=== PATIENT | female | born 1950 | race Asian ===

== ENCOUNTER 2016-11-21 12:51 | Observation (INO) | payer OTHER ==
--- NOTE | 2016-11-21 13:18 | PDOC ---
[id number]: No Limitations - History of Present Illness Initial Comments: 11/21/16 14:11 The patient is a 66 year old female with pmh of HTN (non-compliant with medications) who presents to the ED with shortness of breath for 2 months and elevated blood pressure and chest pain since this morning. The patient reports that her difficulty breathing is exacerbated when lying down and sitting forward. She states that her chest pain is minor and located mid sternally. The patient reports associated pounding headache and lightheadedness. The patient denies any recent changes in blood pressure medication but notes she recently started taking Levaquin. <Tulio Baker - Last Filed: 11/21/16 15:03> <Rena Polk - Last Filed: 11/25/16 22:23> - General Chief Complaint: Shortness of Breath Stated Complaint: SOB, HIGH BLOOD PRESSURE Time Seen by Provider: 11/21/16 13:18 Past History <Tulio Baker - Last Filed: 11/21/16 15:03> - Past Medical History Diabetes: Yes HTN: Yes Hypercholesterolemia: Yes - Psycho/Social/Smoking Cessation Hx Suicidal Ideation: No Smoking History: Never smoked <Rena Polk - Last Filed: 11/25/16 22:23> - Past Medical History Allergies/Adverse Reactions: Allergies Allergy/AdvReac Type Severity Reaction Status Date / Time No Known Allergies Allergy Verified 11/21/16 13:11 Home Medications: Ambulatory Orders Albuterol Sulfate Inhaler - [Ventolin HFA Inhaler -] 2 inh PO Q4H PRN 11/21/16 Atorvastatin Ca [Lipitor] 10 mg PO HS 11/21/16 Gabapentin 300 mg PO BID 11/21/16 Losartan Potassium 50 mg PO HS 11/21/16 Metformin HCl [Glucophage] 1,000 mg PO BID 11/21/16 Albuterol 2.5/Ipratropium 0.5 [Duoneb -] 1 amp NEB Q6H PRN #6 amp 11/24/16 Aspirin Coated [Ecotrin -] 81 mg PO DAILY #30 tab 11/24/16 Metoprolol Tartrate [Lopressor -] 25 mg PO BID #60 tablet 11/24/16 Pantoprazole Sodium [Protonix -] 40 mg PO BID #60 tab 04/03/17 Salmeterol/Fluticasone [Advair 250Mcg/50Mcg -] 1 inh IH BID #6 inh 11/24/16 Review of Systems - Review of Systems Able to Perform ROS?: Yes Comments:: 11/21/16 14:11 GENERAL/CONSTITUTIONAL: No fever or chills. No weakness. HEAD, EYES, EARS, NOSE AND THROAT: No change in vision. No ear pain or discharge. No sore throat. CARDIOVASCULAR: Yes chest pain, elevated blood pressure, and shortness of breath. RESPIRATORY: No cough, wheezing, or hemoptysis. GASTROINTESTINAL: No nausea, vomiting, diarrhea or constipation. GENITOURINARY: No dysuria, frequency, or change in urination. MUSCULOSKELETAL: No joint or muscle swelling or pain. No neck or back pain. SKIN: No rash NEUROLOGIC: Yes headache, lightheadedness. No vertigo, loss of consciousness, or change in strength/sensation. ENDOCRINE: No increased thirst. No abnormal weight change. HEMATOLOGIC/LYMPHATIC: No anemia, easy bleeding, or history of blood clots. ALLERGIC/IMMUNOLOGIC: No hives or skin allergy. <Tulio Baker - Last Filed: 11/21/16 15:03> *Physical Exam - Vital Signs Last Vital Signs Temp Pulse Resp BP Pulse Ox 98.1 F 89 17 136/79 98 11/21/16 13:11 11/21/16 13:11 11/21/16 13:11 11/21/16 13:11 11/21/16 13:11 - Physical Exam Comments: 11/21/16 14:11 GENERAL: Awake, alert, and fully oriented, in no acute distress HEAD: No signs of trauma EYES: PERRLA, EOMI, sclera anicteric, conjunctiva clear ENT: Auricles normal inspection, hearing grossly normal, nares patent, oropharynx clear without exudates. Moist mucosa NECK: Normal ROM, supple, no lymphadenopathy, JVD, or masses LUNGS: (+) Bilateral basal crackles. HEART: Regular rate and rhythm, normal S1 and S2, no murmurs, rubs or gallops ABDOMEN: Soft, nontender, normoactive bowel sounds. No guarding, no rebound. No masses EXTREMITIES: Normal range of motion, no edema. No clubbing or cyanosis. No cords, erythema, or tenderness NEUROLOGICAL: Cranial nerves II through XII grossly intact. Normal speech, normal gait SKIN: Warm, Dry, normal turgor, no rashes or lesions noted. <Tulio Baker - Last Filed: 11/21/16 15:03> - Vital Signs Last Vital Signs Temp Pulse Resp BP Pulse Ox 98.1 F 89 17 136/79 98 11/21/16 13:11 11/21/16 13:11 11/21/16 13:11 11/21/16 13:11 11/21/16 13:11 <Rena Polk - Last Filed: 11/25/16 22:23> ED Treatment Course - LABORATORY CBC & Chemistry Diagram: 11/21/16 13:29 11/21/16 13:29 - ADDITIONAL ORDERS Additional order review: 11/21/16 13:29 RBC 4.25 MCV 88.0 MCHC 33.1 RDW 13.6 MPV 8.6 Neutrophils % 59.1 Lymphocytes % 30.5 Monocytes % 7.8 Eosinophils % 1.5 Basophils % 1.1 - RADIOLOGY Radiograph Interpretation: 11/21/16 15:03 EXAM#: TYPE/EXAM: RESULT: [id number] RAD/CHEST PA LAT Clinical history: Shortness of breath. Rule out pneumonia. Comparison: March 05, 2016. PA and lateral views of the chest are supplied and demonstrate uncoiling of the aorta and degenerative changes of the dorsal spine. No acute intrathoracic abnormality is visualized. No heart failure, effusion or consolidation is seen. The lungs are hyperexpanded. Mild linear scarring in the apices and at the bases. Mild right apical pleural cap as previously IMPRESSION: Hyperexpanded lungs No acute intrathoracic abnormality seen. Clinical correlation advised. Reported By: Mervin Mays MD 11/21/16 1445 <Tulio Baker - Last Filed: 11/21/16 15:03> - LABORATORY CBC & Chemistry Diagram: 11/22/16 06:20 11/23/16 11:10 <Rena Polk - Last Filed: 11/25/16 22:23> Medical Decision Making - Medical Decision Making 11/21/16 16:[address] Arora at shift change. Presents with cp, SOB. Found to be tachycardic and uncomfortable on initial evaluation. Initial labs and CE negative, awaiting D-0dimer. If positive, will obtain CTA chest to r/o PE. If negative, will admit to telemetry for further workup for possible ACS. <Rena Polk - Last Filed: 11/25/16 22:23> *DC/Admit/Observation/Transfer - Attestations Scribe Attestion: 11/21/16 14:11 Documentation prepared by Tulio Baker, acting as medical biller for Rena Polk MD. <Tulio Baker - Last Filed: 11/21/16 15:03> <Rena Polk - Last Filed: 11/25/16 22:23> Diagnosis at time of Disposition: Chest pain - Discharge Dispostion Disposition: HOME Condition at time of disposition: Good - Prescriptions - Referrals
[2016-11-21 13:19] VITALS: BMI 23.3
[2016-11-21 13:53] LABS: BASOPHIL 1.1 % (0-2.0); EOSINOPHIL 1.5 % (0-4.5); MCH 29.1 pg (25.7-33.7); MCHC 33.1 g/dl (32.0-36.0); MEAN PLT VOLUME 8.6 fl (7.5-11.1); NEUTROPHILS 59.1 % (42.8-82.8); PLATELET COUNT 212 K/MM3 (134-434); RDW 13.6 % (11.6-15.6); WHITE BLOOD COUNT 10.3 K/mm3 (4.0-10.0)
[2016-11-21 14:22] LABS: ALBUMIN 3.5 g/dl (3.4-5.0); ANION GAP 12 (8-16); CO2 24 mmol/L (21-32); CREATININE 0.7 mg/dL (0.55-1.02); GLUCOSE,RANDOM 107 mg/dL (74-106); SGOT/AST 21 U/L (15-37); SGPT/ALT 33 U/L (12-78)
[2016-11-21 14:25] LABS: ALK PHOS 55 U/L (45-117); BILIRUBIN,TOTAL 0.3 mg/dL (0.2-1.0); TOT PROT 7.7 g/dl (6.4-8.2); TROPONIN I < 0.02 ng/ml (0.00-0.05)
[2016-11-21] MEDS ORDERED: ASPIRIN 81 MG CHEWABLE TABLETS PO ONE (18:28)
[2016-11-21] MEDS ORDERED: ASPIRIN 325 MG TABLET ONE (18:30)
--- NOTE | 2016-11-21 19:57 | PDOC ---
*Physical Exam - Vital Signs Last Vital Signs Temp Pulse Resp BP Pulse Ox 98 F 83 17 126/78 98 11/21/16 16:01 11/21/16 16:01 11/21/16 16:01 11/21/16 16:01 11/21/16 16:01 ED Treatment Course - LABORATORY CBC & Chemistry Diagram: 11/21/16 13:29 11/21/16 13:29 - ADDITIONAL ORDERS Additional order review: Laboratory Results 11/21/16 11/21/16 11/21/16 16:48 15:21 13:29 D-Dimer < 200 Cancelled Sodium 135 L Potassium 4.4 Chloride 99 Carbon Dioxide 24 Anion Gap 12 BUN 20 H Creatinine 0.7 Creat Clearance w eGFR > 60 Random Glucose 107 H Calcium 9.0 Total Bilirubin 0.3 AST 21 ALT 33 Alkaline Phosphatase 55 Creatine Kinase 114 Troponin I < 0.02 B-Natriuretic Peptide 138.87 H Total Protein 7.7 Albumin 3.5 11/21/16 13:29 RBC 4.25 MCV 88.0 MCHC 33.1 RDW 13.6 MPV 8.6 Neutrophils % 59.1 Lymphocytes % 30.5 Monocytes % 7.8 Eosinophils % 1.5 Basophils % 1.1 - Medications Given in the ED: ED Medications Discontinued Medications Generic Name Dose Route Start Last Admin Trade Name Freq PRN Reason Stop Dose Admin Aspirin 324 mg 11/21/16 18:28 11/21/16 18:36 Asa - PO 11/21/16 18:29 324 mg ONCE ONE Administration Medical Decision Making - Medical Decision Making 11/21/16 19:56 Sign-out received from outgoing Emergency Physician Dr. Polk Pt interviewed and examined Ancillary studies reviewed Case discussed in detail with oncoming Emergency Physician including history, physical exam and ancillary studies. CBC, BMP 11/21/16 13:29 11/21/16 13:29 CMP Sodium 135 mmol/L (136-145) L 11/21/16 13:29 Potassium 4.4 mmol/L (3.5-5.1) 11/21/16 13:29 Chloride 99 mmol/L (98-107) 11/21/16 13:29 Carbon Dioxide 24 mmol/L (21-32) 11/21/16 13:29 Anion Gap 12 (8-16) 11/21/16 13:29 BUN 20 mg/dL (7-18) H 11/21/16 13:29 Creatinine 0.7 mg/dL (0.55-1.02) 11/21/16 13:29 Creat Clearance w eGFR > 60 (>60) 11/21/16 13:29 Random Glucose 107 mg/dL (74-106) H 11/21/16 13:29 Calcium 9.0 mg/dL (8.5-10.1) 11/21/16 13:29 Total Bilirubin 0.3 mg/dL (0.2-1.0) 11/21/16 13:29 AST 21 U/L (15-37) 11/21/16 13:29 ALT 33 U/L (12-78) 11/21/16 13:29 Alkaline Phosphatase 55 U/L (45-117) 11/21/16 13:29 Creatine Kinase 114 IU/L (26-192) 11/21/16 13:29 Troponin I < 0.02 ng/ml (0.00-0.05) 11/21/16 13:29 B-Natriuretic Peptide 138.87 pg/ml (5-125) H 11/21/16 13:29 Total Protein 7.7 g/dl (6.4-8.2) 11/21/16 13:29 Albumin 3.5 g/dl (3.4-5.0) 11/21/16 13:29 Chest xray reveals hyperexpanded lungs. Case discussed with Dr. Bryant. Accepts under tele observation. Case discussed in detail with admitting physician including history, physical exam and ancillary studies. Admitting physician has assumed care for the patient, will follow all pending diagnostics and will complete the evaluation and treatment. *DC/Admit/Observation/Transfer Diagnosis at time of Disposition: Chest pain Qualifiers: Chest pain type: unspecified Qualified Code(s): R07.9 - Chest pain, unspecified - Discharge Dispostion Condition at time of disposition: Stable Admit: Yes - Referrals Referrals: Ish Mcrae MD [Primary Care Provider] - - Patient Instructions - Post Discharge Activity
--- NOTE | 2016-11-21 20:44 | HP ---
CHIEF COMPLAINT: " Chest pain, palpitation and high blood pressure" PCP: Dr. Mcrae HISTORY OF PRESENT ILLNESS: Patient is a 66-year-old female presented with the chief complaints of " Chest pain, palpitation and high blood pressure". As per the patient, she was feeling well until a month ago but started feeling weak and dizzy on/off. Associated with SOB, dry cough, and palpitations. She visited her primary doctor and was told that she has bronchitis and was given Levofloxacin x10 days which she has been taking it since 9 days. Tomorrow is her last dose of Levofloxacin. She woke up feeling very dizzy with headache, this morning. Checked her blood pressure at home and it was 181/150mmHg. Repeat after 2 hours was 161/123 mmHg. Has a h/o of hypertension and is compliant with medication. Normally takes Losartan 50mg but when her BP increases she sometimes takes 100mg twice a day. Describes the headache to be pressure type. Denies blurring of vision, loc, vertigo, tingling or numbness sensation. Patient also mentions that she has been having palpitation since a month. Usually her pulse ranges from 80-95bpm. Admits that she gets worried about her brothers ady who is in [place] and is in ICU. Patient plans to visit [place] in few weeks. Also states that she has noticed unintentional weight loss within the past year. Patient also states that she had chest pain this morning, lasting for several hours, non radiating, pricking in nature, 6/10 in intensity but resolved completely. Has shortness of breath on/off even at rest. Relieved by sitting up and aggravated on lying flat completely. Associated with Orthopnea +, PND +. Has never done an echo or any cardiac work up in the past. Bowel/Bladder habit normal. Appetite-normal Sleep disturbed. (1) Afebrile, hemodynamically stable, BP-126/78 (2)EKG: NSR @93bpm with questionable age indeterminate anterior wall infarct. Troponin <0.02 x1 (3) CXR: clear with hyperinflated lung serna, no acute pathology (4) ASA 324mg x1, Protonix 40mg IV x1 Recent Travel: None PAST MEDICAL HISTORY: Hypertension, Hyperlipidemia, Diabetes Mellitus, GERD, Asthma, Uterine prolapse (has a pessary) PAST SURGICAL HISTORY: None Social History: Smoking: Denies Alcohol: Denies Drugs: Denies Family History: Unknown Allergies No Known Allergies Allergy (Verified 11/21/16 13:11) HOME MEDICATIONS: Home Medications Medication Instructions Recorded Albuterol Sulfate Inhaler - 2 inh PO Q4H PRN 11/21/16 [Ventolin Hfa Inhaler -] Atorvastatin Ca [Lipitor] 10 mg PO HS 11/21/16 Budesonide/Formeterol Fumarate 1 inh PO BID 11/21/16 [SYMBICORT 160/4.5mcg -] Gabapentin 300 mg PO BID 11/21/16 Levofloxacin [Levaquin -] 500 mg PO DAILY 11/21/16 Losartan Potassium 50 mg PO HS 11/21/16 Metformin HCl [Glucophage] 1,000 mg PO BID 11/21/16 REVIEW OF SYSTEMS CONSTITUTIONAL: Present: generalized weakness Absent: fever, chills, diaphoresis, malaise, loss of appetite, weight change HEENT: Absent: rhinorrhea, nasal congestion, throat pain, throat swelling, difficulty swallowing, mouth swelling, ear pain, eye pain, visual changes CARDIOVASCULAR: Present: chest pain, palpitations Absent: irregular heart rate, lightheadedness, peripheral edema RESPIRATORY: Present: shortness of breath, dyspnea with exertion, orthopnea Absent: cough, wheezing, stridor, hemoptysis GASTROINTESTINAL: Absent: abdominal pain, abdominal distension, nausea, vomiting, diarrhea, constipation, melena, hematochezia GENITOURINARY: Absent: dysuria, frequency, urgency, hesitancy, hematuria, flank pain, genital pain MUSCULOSKELETAL: Absent: myalgia, arthralgia, joint swelling, back pain, neck pain SKIN: Absent: rash, itching, pallor HEMATOLOGIC/IMMUNOLOGIC: Absent: easy bleeding, easy bruising, lymphadenopathy, frequent infections ENDOCRINE: Present: unexplained weight loss Absent: unexplained weight gain, heat intolerance, cold intolerance NEUROLOGIC: Absent: headache, focal weakness or paresthesias, dizziness, unsteady gait, seizure, mental status changes, bladder or bowel incontinence PSYCHIATRIC: Absent: anxiety, depression, suicidal or homicidal ideation, hallucinations. PHYSICAL EXAMINATION GENERAL: Moderately built female, Awake, alert, and fully oriented, in no acute distress. HEAD: Normal with no signs of trauma. EYES: EOM intact, no pallor or icterus. EARS, NOSE, THROAT: Ears normal. Moist mucous membranes. NECK:Supple LUNGS: Breath sounds equal, clear to auscultation bilaterally. No wheezes, and no crackles. No accessory muscle use. HEART: Tachycardic, Regular rate and rhythm, normal S1 and S2 without murmur. ABDOMEN: Soft, nontender, not distended, normoactive bowel sounds, no guarding, no rebound, no masses. No hepatomegaly or splenomegaly. MUSCULOSKELETAL: Normal range of motion at all joints. No bony deformities or tenderness. No CVA tenderness. UPPER EXTREMITIES: 2+ pulses, warm, well-perfused. No cyanosis. No clubbing. No peripheral edema. LOWER EXTREMITIES: 2+ pulses, warm, well-perfused. No calf tenderness. No peripheral edema. NEUROLOGICAL: Cranial nerves II-XII intact. Normal speech. Normal gait. PSYCHIATRIC: Cooperative. Good eye contact. Anxious. Appropriate mood and affect. SKIN: Warm, dry, normal turgor, no rashes or lesions noted, normal capillary refill. ASSESSMENT/PLAN: Patient is a 66-year-old female with signficant past medical history of Hypertension, Hyperlipidemia, Diabetes Mellitus, GERD, Asthma, Uterine prolapse (has a pessary) presented with the chief complaints of " Chest pain, palpitation and high blood pressure". # Atypical chest pain Patient presented with left sided chest pain x 1 days, non radiating, associated with palpitations (since a month) On arrival, vitals wnl EKG: NSR @93bpm with questionable age indeterminate anterior wall infarct. Placed on observation Monitor vitals, continuous cardiac monitoring Troponin x 2 negative Would consider Echo and stress test as outpatient # Palpitations Likely due to anxiety. Patient looks anxious and seems like she worries about everything. Xanax 0.25mg stat # Uncontrolled hypertension BP reading at home was 181/150mmHg. Repeat after 2 hours was 161/123 mmHg. But was normal when she came to the ED Continue Losartan 50mg PO HS Medication compliance counseling Sodium controlled diet # Diabetes Mellitus HbA1c pending Insulin sliding scale Finger stick glucose monitoring Diabetic diet # Asthma On Symbicort and albuterol. Albuterol on hold due to palpitations. # GERD On Protonix Would consider continuing protonix upon discharge # Uterine prolapse (has a pessary) No acute problems. # FEN IV NS @ NS 83mls/hr Electrolytes to be repeated tomorrow Diabetic diet # Prophylaxis For DVT- On Scds, patient ambulating For GI- On protonix # Code Status: Full Code # Dispo: Placed on observation in Telemetry. Illness, Investigation and Plan of care of explained to the patient. She verbalized understanding. Case seen and discussed with Dr. Bryant. Visit type - Emergency Visit Emergency Visit: Yes ED Registration Date: 11/21/16 Care time: The patient presented to the Emergency Department on the above date and was hospitalized for further evaluation of their emergent condition. - New Patient This patient is new to me today: Yes Date on this admission: 11/21/16 - Critical Care Critical Care patient: No
[2016-11-21] MEDS ORDERED: ACETAMINOPHEN 325 MG TABLET (FP) PO PRN (20:47)
[2016-11-21] MEDS ORDERED: PANTOPRAZOLE SODIUM 40 MG in SODIUM CHLORIDE 100 ML IVPB SCH (21:00)
[2016-11-21] MEDS ORDERED: PANTOPRAZOLE SODIUM 100 ML IVPB ONE (21:04)
[2016-11-21] MEDS: SODIUM CHLORIDE 1,000 ML IV SCH (21:18)
--- NOTE | 2016-11-21 21:22 | MSN ---
Admitting History and Physical - Admission Chief Complaint: Chest pain, SOB, and high blood pressure reading History of Present Illness: Pt is a 66 yo F with a PMHx of DM2, HTN, HLD, GERD, and asthma, who presents to the ED complaining of acute onset chest pain and difficulty breathing. She has been feeling unwell for over a month now with symptoms of CP, SOB, dry cough, and palpitations. This morning before breakfast she felt dizzy, developed a global, pressure type headache, and had an elevated BP reading of "around 181/ 150". A repeat of "161/123" was done. She also admitted to L sided, dull, achy CP that lasted a few hours. The pt states her cough is worse when lying down and often at night she experiences a burning sensation in her chest. Of note, she went to her PMD last week and was Dx with bronchitis. She was prescribed Levaquin and Symbicort. The pt appears very anxious and worried about these ongoing symptoms. When she does experience palpitations she notes her HR to be in the 90s and sometimes in the low 100s. Pt admits to recent weight loss over the past year. Pt denies recent fevers, chills, abdominal pain, nausea, vomiting, diarrhea, constipation, dysuria, frequency, change in vision, floaters , or blurriness. ER course was notable for: (1) EKG: NSR @93bpm with questionable age indeterminate anterior wall infarct. Troponin <0.02 x1 (2) CXR: clear with hyperinflated lung serna, no acute pathology (3) ASA 324mg x1, Protonix 40mg IV x1 History Source: Patient Limitations to Obtaining History: No Limitations - Past Medical History Cardiovascular: Yes: HTN, Hyperlipdemia. No: [place] Pulmonary: Yes: Asthma, Bronchitis Gastrointestinal: Yes: GERD Reproductive: Yes: Other (Uterine prolapse) Endocrine: Yes: Diabetes Mellitus - Past Surgical History Additional Past Surgical History: Hemorrhoidectomy - Smoking History Smoking history: Never smoked Have you smoked in the past 12 months: No - Alcohol/Substance Use Hx Alcohol Use: No History of Substance Use: reports: None - Social History Usual Living Arrangement: Yes: With Spouse ADL: Independent History of Recent Travel: No Home Medications - Allergies Allergies/Adverse Reactions: Allergies Allergy/AdvReac Type Severity Reaction Status Date / Time No Known Allergies Allergy Verified 11/21/16 13:11 - Home Medications Home Medications: Ambulatory Orders Albuterol Sulfate Inhaler - [Ventolin Hfa Inhaler -] 2 inh PO Q4H PRN 11/21/16 Atorvastatin Ca [Lipitor] 10 mg PO HS 11/21/16 Budesonide/Formeterol Fumarate [SYMBICORT 160/4.5mcg -] 1 inh PO BID 11/21/16 Gabapentin 300 mg PO BID 11/21/16 Levofloxacin [Levaquin -] 500 mg PO DAILY 11/21/16 Losartan Potassium 50 mg PO HS 11/21/16 Metformin HCl [Glucophage] 1,000 mg PO BID 11/21/16 Family Disease History - Family Disease History Family Disease History: Other: Mother (Hyperthyroidism), Brother (HTN) Other Family History: Negative for [place] Review of Systems - Review of Systems Constitutional: reports: Unintentional Wgt. Loss. denies: Chills, Fever Eyes: denies: No Symptoms HENT: denies: No Symptoms Neck: denies: No Symptoms Cardiovascular: reports: Chest Pain, Palpitations, Shortness of Breath Respiratory: reports: Cough, PND, SOB Gastrointestinal: reports: Indigestion (Worse at night when lying flat). denies : Abdominal Pain, Constipation, Diarrhea, Nausea, Vomiting Genitourinary: denies: Burning, Discharge, Dysuria, Frequency, Hematuria, Urgency Breasts: denies: No Symptoms Reported Musculoskeletal: reports: Joint Swelling Integumentary: denies: No Symptoms Neurological: reports: Dizziness, Headache Endocrine: reports: Unexplained Weight Loss Hematology/Lymphatic: denies: No Symptoms Psychiatric: reports: Anxiety Physical Examination Vital Signs: Vital Signs Temperature 98 F 11/21/16 16:01 Pulse Rate 83 11/21/16 16:01 Respiratory Rate 17 11/21/16 16:01 Blood Pressure 126/78 11/21/16 16:01 O2 Sat by Pulse Oximetry (%) 98 11/21/16 16:01 Constitutional: Yes: Well Nourished, Anxious, Mild Distress, Thin Eyes: Yes: WNL, Conjunctiva Clear, EOM Intact, PERRL. No: Sclera Icterus HENT: Yes: WNL, Atraumatic, Normocephalic Neck: Yes: WNL, Supple, Trachea Midline Cardiovascular: Yes: WNL, Regular Rate and Rhythm, S1, S2. No: Pulse Irregular , JVD, Murmur, Rub Respiratory: Yes: WNL, Regular, CTA Bilaterally. No: Cough, Rales, Rhonchi, SOB , Tachypnea, Wheezes Gastrointestinal: Yes: WNL, Normal Bowel Sounds, Soft. No: Distention, Tenderness, Tenderness, Epigastrium, Tenderness, Rebound, Vomiting Extremities: Yes: WNL Edema: No Peripheral Pulses WNL: Yes Integumentary: Yes: WNL Neurological: Yes: WNL, Alert, Oriented, Cran Nerves II-XII Intact. No: Loss of Sensation, Numbness, Paresthesia, Tingling, Tremors ...Motor Strength: WNL Psychiatric: Yes: WNL, Alert, Oriented, Other (Anxious) Labs: CBC WBC 10.3 K/mm3 (4.0-10.0) H 11/21/16 13:29 RBC 4.25 M/mm3 (3.60-5.2) 11/21/16 13:29 Hgb 12.4 GM/dL (10.7-15.3) 11/21/16 13:29 Hct 37.4 % (32.4-45.2) 11/21/16 13:29 MCV 88.0 fl (80-96) 11/21/16 13:29 MCHC 33.1 g/dl (32.0-36.0) 11/21/16 13:29 RDW 13.6 % (11.6-15.6) 11/21/16 13:29 Plt Count 212 K/MM3 (134-434) 11/21/16 13:29 MPV 8.6 fl (7.5-11.1) 11/21/16 13:29 Neutrophils % 59.1 % (42.8-82.8) 11/21/16 13:29 Lymphocytes % 30.5 % (8-40) 11/21/16 13:29 Monocytes % 7.8 % (3.8-10.2) 11/21/16 13:29 Eosinophils % 1.5 % (0-4.5) 11/21/16 13:29 Basophils % 1.1 % (0-2.0) 11/21/16 13:29 CMP Sodium 135 mmol/L (136-145) L 11/21/16 13:29 Potassium 4.4 mmol/L (3.5-5.1) 11/21/16 13:29 Chloride 99 mmol/L (98-107) 11/21/16 13:29 Carbon Dioxide 24 mmol/L (21-32) 11/21/16 13:29 Anion Gap 12 (8-16) 11/21/16 13:29 BUN 20 mg/dL (7-18) H 11/21/16 13:29 Creatinine 0.7 mg/dL (0.55-1.02) 11/21/16 13:29 Creat Clearance w eGFR > 60 (>60) 11/21/16 13:29 Random Glucose 107 mg/dL (74-106) H 11/21/16 13:29 Calcium 9.0 mg/dL (8.5-10.1) 11/21/16 13:29 Total Bilirubin 0.3 mg/dL (0.2-1.0) 11/21/16 13:29 AST 21 U/L (15-37) 11/21/16 13:29 ALT 33 U/L (12-78) 11/21/16 13:29 Alkaline Phosphatase 55 U/L (45-117) 11/21/16 13:29 Creatine Kinase 114 IU/L (26-192) 11/21/16 13:29 Troponin I < 0.02 ng/ml (0.00-0.05) 11/21/16 13:29 B-Natriuretic Peptide 138.87 pg/ml (5-125) H 11/21/16 13:29 Total Protein 7.7 g/dl (6.4-8.2) 11/21/16 13:29 Albumin 3.5 g/dl (3.4-5.0) 11/21/16 13:29 D-Dimer: <200 Imaging - Results Chest X-ray: Report Reviewed, Image Reviewed (Clear with hyperinflated lung serna, no acute pathology) EKG: Report Reviewed, Image Reviewed (NSR @93bpm with questionable age indeterminate anterior wall infarct) Problem List - Problems (1) Chest pain Assessment/Plan Pt is a 66 yo F with a PMHx of DM2, HTN, HLD, GERD, and asthma, who presents to the ED c/o CP, SOB, dizziness, and headache in the setting of elevated BP readings at home. Pt states she has not been feeling well for over a month and has been experiencing recurring symptoms of CP, SOB, cough, and palpitations. 1. Atypical chest pain r/o ACS -Resolved -EKG negative -Trops negative x1 -ASA 324mg x1 given in ED -Likely 2/2 unmanaged GERD. Pt is not on PPI at home -Start Protonix 40mg IV daily -Repeat CBC, CMP, and coags in AM 2. SOB -Pt does not appear in respiratory distress. Lungs CTAB -Hold inhalers as they can be contributing to palpitations (albuterol) and GERD (steroids) 3. Palpitations -TSH pending -Tele monitoring -Pt could benefit from beta philip. Hold now since BP readings are nml -Start NS @83cc/hr. Pt BUN/Cr >20 and admits to limited fluid intake -ECHO pending -Xanax prn for anxiety 4. HTN -Stable. Nml readings x2 since admission -Monitor vitals Q4H -Hold Cozaar since BP readings are nml -Pt may benefit from BB instead of ACEI in setting of elevated HR 5. Headache -Tylenol 650mg Q6H prn 6. DM2 -BGM -SSI -HbA1c pending 7. HLD -Lipitor 10mg PO HS -Lipid panel pending 8. FEN -IVF with NS @83cc/hr -BMP WNL. Mg, Phos pending -Na/Carb controlled diet 9. DVT ppx - 10. Dispo -Pt to be admitted to telemetry Dewayne Mcnamara, MS3
[2016-11-21] MEDS ORDERED: PANTOPRAZOLE SODIUM 100 ML IVPB SCH (21:29)
--- NOTE | 2016-11-21 21:56 | PN ---
<Tete Briones - Last Filed: 11/21/16 22:21> Teaching Attending Note ATTENDING PHYSICIAN STATEMENT I saw and evaluated the patient. I reviewed the resident's note and discussed the case with the resident. I agree with the resident's findings and plan as documented. SUBJECTIVE: Chief complaint: chest discomfort and palpitations x 1 1/2 month 66 year old female that presents to Emergency Department complaining 1 1/2 month history of palpitations, generalized weakness, fatigue, occasional cough, occasional shortness of breath and now mid-sternal chest pressure. She was seen and evaluated by her PMD recently and diagnosed with bronchitis and was prescribed symbicort and PO antibiotics. She presents today due to lack of improvement of her symptoms. Patient appears very anxious. PMH: hypertension, asthma, GERD, hyperlipidemia PSH: none FMH: non contributory SH: denies smoking, drinking, drug use OBJECTIVE: Physical: VS: Last Vital Signs Temp Pulse Resp BP Pulse Ox 98 F 83 17 126/78 98 11/21/16 16:01 11/21/16 16:01 11/21/16 16:01 11/21/16 16:01 11/21/16 16:01 GENERAL: Awake, alert, and fully oriented, in no acute distress HEENT: Atraumatic. PERRLA, EOMI. Moist mucosa. No JVD LUNGS: No distress, speaks full sentences, clear to auscultation bilaterally HEART: Regular rate and rhythm, normal S1 and S2, no murmurs, rubs or gallops, peripheral pulses normal and equal bilaterally. ABDOMEN: Soft, nontender, normoactive bowel sounds. No guarding, no rebound. No masses EXTREMITIES: Normal inspection, Normal range of motion, no edema. No clubbing or cyanosis. NEUROLOGICAL: Cranial nerves II through XII grossly intact. Normal speech, normal gait, no focal sensorimotor deficits SKIN: Warm, Dry, normal turgor, no rashes or lesions noted. Labs: CBCD WBC 10.3 K/mm3 (4.0-10.0) H 11/21/16 13:29 RBC 4.25 M/mm3 (3.60-5.2) 11/21/16 13:29 Hgb 12.4 GM/dL (10.7-15.3) 11/21/16 13:29 Hct 37.4 % (32.4-45.2) 11/21/16 13:29 MCV 88.0 fl (80-96) 11/21/16 13:29 MCHC 33.1 g/dl (32.0-36.0) 11/21/16 13:29 RDW 13.6 % (11.6-15.6) 11/21/16 13:29 Plt Count 212 K/MM3 (134-434) 11/21/16 13:29 MPV 8.6 fl (7.5-11.1) 11/21/16 13:29 CMP Sodium 135 mmol/L (136-145) L 11/21/16 13:29 Potassium 4.4 mmol/L (3.5-5.1) 11/21/16 13:29 Chloride 99 mmol/L (98-107) 11/21/16 13:29 Carbon Dioxide 24 mmol/L (21-32) 11/21/16 13:29 Anion Gap 12 (8-16) 11/21/16 13:29 BUN 20 mg/dL (7-18) H 11/21/16 13:29 Creatinine 0.7 mg/dL (0.55-1.02) 11/21/16 13:29 Creat Clearance w eGFR > 60 (>60) 11/21/16 13:29 Calcium 9.0 mg/dL (8.5-10.1) 11/21/16 13:29 Total Bilirubin 0.3 mg/dL (0.2-1.0) 11/21/16 13:29 AST 21 U/L (15-37) 11/21/16 13:29 ALT 33 U/L (12-78) 11/21/16 13:29 Alkaline Phosphatase 55 U/L (45-117) 11/21/16 13:29 Total Protein 7.7 g/dl (6.4-8.2) 11/21/16 13:29 Albumin 3.5 g/dl (3.4-5.0) 11/21/16 13:29 IMAGING: EXAM: RAD/CHEST PA LAT Clinical history: Shortness of breath. Comparison: March 05, 2016. PA and lateral views of the chest are supplied and demonstrate uncoiling of the aorta and degenerative changes of the dorsal spine. No acute intrathoracic abnormality is visualized. No heart failure, effusion or consolidation is seen. The lungs are hyperexpanded. Mild linear scarring in the apices and at the bases. Mild right apical pleural cap as previously IMPRESSION: Hyperexpanded lungs No acute intrathoracic abnormality seen. Clinical correlation advised. Reported By: Mervin Mays MD 11/21/16 8121 ASSESSMENT AND PLAN: 66 year old female presenting with 1 1/2 month of atypical chest pain and subjective palpitations. No acute ECG changes noted at this time. Troponin negative x1. - Telemetry monitoring - ECHO - IVF - Check TSH - Monitor blood pressure and start antihypertensive depending on vital signs - Xanax PRN for anxiety Observation. <Deep Bryant - Last Filed: 11/21/16 22:26> Teaching Attending Note Name of Resident: Kamilah Conklin
[2016-11-21] MEDS ORDERED: HEMOQUE TEST 1 EACH EACH ONE (22:14)
[2016-11-21] MEDS: ATORVASTATIN CA 10 MG TABLET (FP) PO SCH (22:23)
[2016-11-21] MEDS: LOSARTAN POTASSIUM 50 MG TABLET (FP) PO SCH (22:23)
[2016-11-21] MEDS: GABAPENTIN 300 MG CAPSULE (FP) PO SCH (22:23)
[2016-11-21] MEDS: INSULIN SLIDING SCALE (NOVOLOG) 1 VIAL SQ SCH (22:23)
[2016-11-21] MEDS: BUDESONIDE/FORMETEROL FUMARATE 160/4.5 mcg INHALER IH SCH (22:24)
[2016-11-22] MEDS ORDERED: ALPRAZolam 0.25 MG TABLET PO ONE (00:26)
[2016-11-22] MEDS: INSULIN SLIDING SCALE (NOVOLOG) 1 VIAL SQ SCH ×4 (06:00→21:59)
[2016-11-22 07:38] LABS: BASOPHIL 1.2 % (0-2.0); EOSINOPHIL 2.7 % (0-4.5); MCH 29.2 pg (25.7-33.7); MCHC 33.4 g/dl (32.0-36.0); MEAN CELL VOLUME 87.4 fl (80-96); MEAN PLT VOLUME 8.7 fl (7.5-11.1); NEUTROPHILS 54.5 % (42.8-82.8); PLATELET COUNT 178 K/MM3 (134-434); RDW 13.6 % (11.6-15.6); WHITE BLOOD COUNT 8.5 K/mm3 (4.0-10.0)
[2016-11-22 07:48] LABS: INR 0.99 (0.82-1.09); PROTHROMBIN TIME (PATIENT) 10.9 SEC (9.98-11.88)
[2016-11-22 07:51] LABS: ACTIVATED PTT 30.8 SECONDS (26.9-34.4)
[2016-11-22 07:58] LABS: ALBUMIN 2.9 g/dl (3.4-5.0); ANION GAP 10 (8-16); CALCIUM 8.4 mg/dL (8.5-10.1); CO2 25 mmol/L (21-32); CREATININE 0.6 mg/dL (0.55-1.02); GLUCOSE,RANDOM 122 mg/dL (74-106); MAGNESIUM 1.9 mg/dL (1.8-2.4); SGOT/AST 13 U/L (15-37); SGPT/ALT 25 U/L (12-78); TOT PROT 6.1 g/dl (6.4-8.2)
[2016-11-22 08:01] LABS: ALK PHOS 44 U/L (45-117); BILIRUBIN,TOTAL 0.2 mg/dL (0.2-1.0); CHOLESTEROL 112 mg/dL (50-200); LDL CHOLESTEROL (ONLY SJRH) 45 mg/dL (5-100); PHOSPHOROUS 3.8 mg/dL (2.5-4.9)
[2016-11-22] MEDS ORDERED: PT OWN MED DRAWER 7, Y5N ONE ×2 (09:06→21:57)
[2016-11-22] MEDS: GABAPENTIN 300 MG CAPSULE (FP) PO SCH ×2 (09:15→21:59)
[2016-11-22] MEDS: BUDESONIDE/FORMETEROL FUMARATE 160/4.5 mcg INHALER IH SCH ×2 (09:15→22:00)
--- NOTE | 2016-11-22 09:35 | PN ---
Physical Exam: SUBJECTIVE: Patient seen and examined Feeling better, with no acute distress. OBJECTIVE: Vital Signs Temperature 97.9 F 11/22/16 06:00 Pulse Rate 88 11/22/16 06:00 Respiratory Rate 18 11/22/16 06:00 Blood Pressure 105/74 11/22/16 06:00 O2 Sat by Pulse Oximetry (%) 99 11/21/16 23:15 GENERAL: The patient is awake, alert, and fully oriented, in no acute distress. HEAD: Normal with no signs of trauma. EYES: PERRL, extraocular movements intact, sclera anicteric, conjunctiva clear. No ptosis. ENT: Ears normal, nares patent, oropharynx clear without exudates, moist mucous membranes. NECK: Trachea midline, full range of motion, supple. LUNGS: Breath sounds equal, clear to auscultation bilaterally, no wheezes, no crackles, no accessory muscle use. HEART: Regular rate and rhythm, S1, S2 without murmur, rub or gallop. ABDOMEN: Soft, nontender, nondistended, normoactive bowel sounds, no guarding, no rebound, no hepatosplenomegaly, no masses. EXTREMITIES: 2+ pulses, warm, well-perfused, no edema. NEUROLOGICAL: Cranial nerves II through XII grossly intact. Normal speech, gait not observed. PSYCH: Normal mood, normal affect. SKIN: Warm, dry, normal turgor, no rashes or lesions noted CBCD WBC 8.5 K/mm3 (4.0-10.0) 11/22/16 06:20 RBC 3.82 M/mm3 (3.60-5.2) 11/22/16 06:20 Hgb 11.2 GM/dL (10.7-15.3) 11/22/16 06:20 Hct 33.4 % (32.4-45.2) 11/22/16 06:20 MCV 87.4 fl (80-96) 11/22/16 06:20 MCHC 33.4 g/dl (32.0-36.0) 11/22/16 06:20 RDW 13.6 % (11.6-15.6) 11/22/16 06:20 Plt Count 178 K/MM3 (134-434) 11/22/16 06:20 MPV 8.7 fl (7.5-11.1) 11/22/16 06:20 CMP Sodium 139 mmol/L (136-145) 11/22/16 06:20 Potassium 4.0 mmol/L (3.5-5.1) 11/22/16 06:20 Chloride 104 mmol/L (98-107) 11/22/16 06:20 Carbon Dioxide 25 mmol/L (21-32) 11/22/16 06:20 Anion Gap 10 (8-16) 11/22/16 06:20 BUN 18 mg/dL (7-18) 11/22/16 06:20 Creatinine 0.6 mg/dL (0.55-1.02) 11/22/16 06:20 Creat Clearance w eGFR > 60 (>60) 11/22/16 06:20 Random Glucose 122 mg/dL (74-106) H 11/22/16 06:20 Calcium 8.4 mg/dL (8.5-10.1) L 11/22/16 06:20 Total Bilirubin 0.2 mg/dL (0.2-1.0) D 11/22/16 06:20 AST 13 U/L (15-37) L D 11/22/16 06:20 ALT 25 U/L (12-78) D 11/22/16 06:20 Alkaline Phosphatase 44 U/L (45-117) L 11/22/16 06:20 Total Protein 6.1 g/dl (6.4-8.2) L D 11/22/16 06:20 Albumin 2.9 g/dl (3.4-5.0) L 11/22/16 06:20 CARDIAC ENZYMES Creatine Kinase 114 IU/L (26-192) 11/21/16 13:29 Troponin I < 0.02 ng/ml (0.00-0.05) 11/21/16 21:05 INR, PTT INR 0.99 (0.82-1.09) 11/22/16 06:20 Active Medications Generic Name Dose Route Start Last Admin Trade Name Freq PRN Reason Stop Dose Admin Acetaminophen 650 mg 11/21/16 20:47 11/22/16 05:02 Tylenol - PO 650 mg Q6H PRN Administration FEVER OR PAIN Atorvastatin Calcium 10 mg 11/21/16 22:00 11/21/16 22:23 Lipitor - PO 10 mg HS FRANCESCO Administration Budesonide/Formoterol Fumarate 1 puff 11/21/16 22:00 11/22/16 09:15 Symbicort 160/4.5mcg - IH 1 puff BID FRANCESCO Administration Gabapentin 300 mg 11/21/16 22:00 11/22/16 09:15 Neurontin - PO 300 mg BID FRANCESCO Administration Sodium Chloride 1,000 mls @ 83 mls/hr 11/21/16 21:00 11/21/16 21:18 Normal Saline - IV 83 mls/hr ASDIR FRANCESCO Administration Pantoprazole Sodium 100 mls @ 200 mls/hr 11/21/16 21:29 11/22/16 09:15 Protonix 40mg Ivpb (Pre-Docked) IVPB 200 mls/hr DAILY FRANCESCO Administration Insulin Aspart 1 vial 11/21/16 22:00 11/22/16 06:00 Novolog Vial Sliding Scale - SQ Not Given ACHS [facility] Protocol Losartan Potassium 50 mg 11/21/16 22:00 11/21/16 22:23 Cozaar - PO 50 mg HS FRANCESCO Administration Non-Formulary Medication 1,000 mg 11/22/16 10:00 Metformin Hcl [Glucophage] PO BID [facility] Home Medications Medication Instructions Recorded Albuterol Sulfate Inhaler - 2 inh PO Q4H PRN 11/21/16 [Ventolin Hfa Inhaler -] Atorvastatin Ca [Lipitor] 10 mg PO HS 11/21/16 Budesonide/Formeterol Fumarate 1 inh PO BID 11/21/16 [SYMBICORT 160/4.5mcg -] Gabapentin 300 mg PO BID 11/21/16 Levofloxacin [Levaquin -] 500 mg PO DAILY 11/21/16 Losartan Potassium 50 mg PO HS 11/21/16 Metformin HCl [Glucophage] 1,000 mg PO BID 11/21/16 Laboratory Tests 11/21/16 11/21/16 11/22/16 13:29 21:05 06:20 Hemoglobin A1c % 7.3 H Troponin I < 0.02 < 0.02 Chest X-ray: Report Reviewed, Image Reviewed (Clear with hyperinflated lung serna, no acute pathology) EKG: Report Reviewed, Image Reviewed (NSR @93bpm with questionable age indeterminate anterior wall infarct) ASSESSMENT/PLAN: Pt is a 66 yo F with a PMHx of DM2, HTN, HLD, GERD, and asthma, who presents to the ED c/o CP, SOB, dizziness, and headache in the setting of elevated BP readings at home. Pt states she has not been feeling well for over a month and has been experiencing recurring symptoms of CP, SOB, cough, and palpitations. #Acute chest pain r/o ACS ; troponin neg. so far, EKG to be repeated for this morning, possible GERD but with hx of T2DM ,patient can have silent [place]. -Trops negative x2 ; on ASA 324mg x1 given in ED # Palpitations most likely due to his inhalers and nebulizers since TSH is normal, need to monitor further in tele for possible any arrythmia On IVF ,NS @83cc/hr. ECHO pending # Hx of Asthma, has not used her singulair for over a month since did not renew them. # HTN Stable. vitals Q4H # Headache Tylenol 650mg Q6H prn #T2DM , SS with coverage ,HbA1c 7. # HLD on Lipitor 10mg PO HS continue DVT ppx - Visit type - Emergency Visit Emergency Visit: Yes ED Registration Date: 11/21/16 Care time: The patient presented to the Emergency Department on the above date and was hospitalized for further evaluation of their emergent condition. - New Patient This patient is new to me today: Yes Date on this admission: 11/22/16 - Critical Care Critical Care patient: No
[2016-11-22] MEDS ORDERED: ALBUTEROL SULFATE IH SCH (10:00)
--- NOTE | 2016-11-22 10:13 | PN ---
Progress Note (short form) - Note Progress Note: Consult Dictated MONTILLA w/ negative enzymes, negative D-dimer and nl BNP Atypical CP REC: Echo on Thursday Stress MPI
[2016-11-22] MEDS ORDERED: METOPROLOL TARTRATE 25 MG TABLET (FP) PO SCH (10:30)
[2016-11-22] MEDS: ASPIRIN COATED 81 MG TABLET.EC PO SCH (10:36)
[2016-11-22] MEDS: metFORMIN HCL 500 MG TABLET (FP) PO SCH ×2 (10:37→18:05)
[2016-11-22 11:19] LABS: TROPONIN I < 0.02 ng/ml (0.00-0.05)
[2016-11-22] MEDS ORDERED: ALBUTEROL SO4 2.5/IPRATROPIUM 0.5 INH SOL 3 ML VIAL.NEB. NEB PRN (12:24)
--- NOTE | 2016-11-22 12:26 | EKG ---
Test Reason : Blood Pressure : / mmHG Vent. Rate : 093 BPM Atrial Rate : 093 BPM P-R Int : 138 ms QRS Dur : 078 ms QT Int : 360 ms P-R-T Axes : 021 028 058 degrees QTc Int : 447 ms NORMAL SINUS RHYTHM LOW VOLTAGE QRS CANNOT RULE OUT ANTERIOR INFARCT , AGE UNDETERMINED ABNORMAL ECG WHEN COMPARED WITH ECG OF 24-AUG-1999 13:10, NO SIGNIFICANT CHANGE WAS FOUND Confirmed by RIP WILLIS, ESTEFANY ([id number]) on 11/22/2016 12:26:05 PM Referred By: Confirmed By:ESTEFANY ERWIN MD
[2016-11-22] MEDS ORDERED: metFORMIN HCL 500 MG TABLET (FP) PO SCH (16:30)
[2016-11-22] MEDS: SODIUM CHLORIDE 1,000 ML IV SCH (21:58)
[2016-11-22] MEDS: MAGNESIUM OXIDE 400 MG TABLET (FP) PO SCH (21:59)
[2016-11-22] MEDS: ATORVASTATIN CA 10 MG TABLET (FP) PO SCH (21:59)
[2016-11-22] MEDS: LOSARTAN POTASSIUM 50 MG TABLET (FP) PO SCH (21:59)
[2016-11-23] MEDS: metFORMIN HCL 500 MG TABLET (FP) PO SCH ×2 (06:42→16:57)
[2016-11-23] MEDS: INSULIN SLIDING SCALE (NOVOLOG) 1 VIAL SQ SCH ×4 (06:43→21:39)
--- NOTE | 2016-11-23 08:29 | PN ---
Progress Note, Physician Chief Complaint: constipated c/o headach c/o leg pains c/o shortness of breath says she felt "great" when protonix was given QHS-- made her sleep with no further chest pain that night Wants her singulair started History of Present Illness: TELE: NSR w/ VPCs and 3 beats NSVT during day yest after metoprolol, ectopy was reduced - Current Medication List Current Medications: Active Medications Acetaminophen (Tylenol -) 650 mg PO Q6H PRN PRN Reason: FEVER OR PAIN Last Admin: 11/22/16 05:02 Dose: 650 mg Albuterol/Ipratropium (Duoneb -) 1 amp NEB Q6H PRN PRN Reason: SHORTNESS OF BREATH Aspirin (Ecotrin -) 81 mg PO DAILY [facility] Last Admin: 11/22/16 10:36 Dose: 81 mg Atorvastatin Calcium (Lipitor -) 10 mg PO HS [facility] Last Admin: 11/22/16 21:59 Dose: 10 mg Budesonide/Formoterol Fumarate (Symbicort 160/4.5mcg -) 1 puff IH BID [facility] Last Admin: 11/22/16 22:00 Dose: 1 puff Gabapentin (Neurontin -) 300 mg PO BID [facility] Last Admin: 11/22/16 21:59 Dose: 300 mg Sodium Chloride (Normal Saline -) 1,000 mls @ 83 mls/hr IV ASDIR [facility] Last Admin: 11/22/16 21:58 Dose: 83 mls/hr Insulin Aspart (Novolog Vial Sliding Scale -) 1 vial SQ ACHS [facility] PRN Reason: Protocol Last Admin: 11/23/16 06:43 Dose: Not Given Losartan Potassium (Cozaar -) 50 mg PO HS [facility] Last Admin: 11/22/16 21:59 Dose: 50 mg Magnesium Oxide (Mag-Ox -) 400 mg PO BID@0800,2000 [facility] Last Admin: 11/22/16 21:59 Dose: 400 mg Metformin HCl (Glucophage -) 1,000 mg PO BIDAC [facility] Last Admin: 11/23/16 06:42 Dose: 1,000 mg Metoprolol Tartrate (Lopressor -) 25 mg PO BID [facility] Montelukast Sodium (Singulair -) 10 mg PO HS [facility] Pantoprazole Sodium (Protonix -) 40 mg PO DAILY FRANCESCO Senna (Senna -) 2 tab PO HS PRN PRN Reason: CONSTIPATION - Objective Vital Signs: Vital Signs Temperature 97.4 F L 11/23/16 06:12 Pulse Rate 84 11/23/16 06:12 Respiratory Rate 16 11/23/16 06:12 Blood Pressure 134/71 11/23/16 06:12 O2 Sat by Pulse Oximetry (%) 94 L 11/23/16 03:00 Constitutional: Yes: No Distress Cardiovascular: Yes: Regular Rate and Rhythm Respiratory: Yes: CTA Bilaterally (no wheezing or rales) Gastrointestinal: Yes: Soft Edema: No Neurological: Yes: Alert, Oriented ...Motor Strength: WNL Labs: CBC, BMP 11/22/16 06:20 11/22/16 06:20 INR, PTT INR 0.99 (0.82-1.09) 11/22/16 06:20 - ....Imaging EKG: Image Reviewed Assessment/Plan MONTILLA w/ negative enzymes, negative D-dimer and nl BNP Atypical CP VPCs Chronic "asthma" DM REC: 1. MONTLILA: -Plan for echo in AM for EF assessment and check RVSP -For stress MIBI -Resume Singulair -Pulm Eval for optimization of asthma regimen although lungs sound clear at moment. Needs PFTs if not done recently -No evidence volume overload 2. Atypical CP: -3 enzymes negative with no acute ECG changes -ASA -Echo and stress MPI in AM 3. VPCs: -Repleting Mg2+ -Increase metoprolol BID (she tolerated yesterday's dose well with no wheezing)
[2016-11-23] MEDS ORDERED: PT OWN MED DRAWER 7, Y5N ONE ×2 (10:20→21:35)
[2016-11-23] MEDS: MAGNESIUM OXIDE 400 MG TABLET (FP) PO SCH ×2 (10:31→21:40)
[2016-11-23] MEDS: ASPIRIN COATED 81 MG TABLET.EC PO SCH (10:31)
[2016-11-23] MEDS: GABAPENTIN 300 MG CAPSULE (FP) PO SCH ×2 (10:31→21:39)
[2016-11-23] MEDS: METOPROLOL TARTRATE 25 MG TABLET (FP) PO SCH ×2 (10:31→21:39)
[2016-11-23] MEDS: BUDESONIDE/FORMETEROL FUMARATE 160/4.5 mcg INHALER IH SCH ×2 (10:31→21:36)
--- NOTE | 2016-11-23 11:50 | PN ---
Progress Note (short form) - Note Progress Note: Patient is comfortable with no acute distress. Temperature 97.4 F L 11/23/16 06:12 Pulse Rate 84 11/23/16 06:12 Respiratory Rate 16 11/23/16 06:12 Blood Pressure 134/71 11/23/16 06:12 O2 Sat by Pulse Oximetry (%) 94 L 11/23/16 03:00 GENERAL: The patient is awake, alert, and fully oriented, in no acute distress. HEAD: Normal with no signs of trauma. EYES: PERRL, extraocular movements intact, sclera anicteric, conjunctiva clear. No ptosis. ENT: Ears normal, nares patent, oropharynx clear without exudates, moist mucous membranes. NECK: Trachea midline, full range of motion, supple. LUNGS: Breath sounds equal, clear to auscultation bilaterally, no wheezes, no crackles, no accessory muscle use. HEART: Regular rate and rhythm, S1, S2 without murmur, rub or gallop. ABDOMEN: Soft, nontender, nondistended, normoactive bowel sounds, no guarding, no rebound, no hepatosplenomegaly, no masses. EXTREMITIES: 2+ pulses, warm, well-perfused, no edema. NEUROLOGICAL: Cranial nerves II through XII grossly intact. Normal speech, gait not observed. PSYCH: Normal mood, normal affect. SKIN: Warm, dry, normal turgor, no rashes or lesions noted CBCD WBC 8.5 K/mm3 (4.0-10.0) 11/22/16 06:20 RBC 3.82 M/mm3 (3.60-5.2) 11/22/16 06:20 Hgb 11.2 GM/dL (10.7-15.3) 11/22/16 06:20 Hct 33.4 % (32.4-45.2) 11/22/16 06:20 MCV 87.4 fl (80-96) 11/22/16 06:20 MCHC 33.4 g/dl (32.0-36.0) 11/22/16 06:20 RDW 13.6 % (11.6-15.6) 11/22/16 06:20 Plt Count 178 K/MM3 (134-434) 11/22/16 06:20 MPV 8.7 fl (7.5-11.1) 11/22/16 06:20 CMP Sodium 139 mmol/L (136-145) 11/22/16 06:20 Potassium 4.0 mmol/L (3.5-5.1) 11/22/16 06:20 Chloride 104 mmol/L (98-107) 11/22/16 06:20 Carbon Dioxide 25 mmol/L (21-32) 11/22/16 06:20 Anion Gap 10 (8-16) 11/22/16 06:20 BUN 18 mg/dL (7-18) 11/22/16 06:20 Creatinine 0.6 mg/dL (0.55-1.02) 11/22/16 06:20 Creat Clearance w eGFR > 60 (>60) 11/22/16 06:20 Random Glucose 122 mg/dL (74-106) H 11/22/16 06:20 Calcium 8.4 mg/dL (8.5-10.1) L 11/22/16 06:20 Total Bilirubin 0.2 mg/dL (0.2-1.0) D 11/22/16 06:20 AST 13 U/L (15-37) L D 11/22/16 06:20 ALT 25 U/L (12-78) D 11/22/16 06:20 Alkaline Phosphatase 44 U/L (45-117) L 11/22/16 06:20 Total Protein 6.1 g/dl (6.4-8.2) L D 11/22/16 06:20 Albumin 2.9 g/dl (3.4-5.0) L 11/22/16 06:20 CARDIAC ENZYMES Creatine Kinase 59 IU/L (26-192) 11/22/16 06:20 Troponin I < 0.02 ng/ml (0.00-0.05) 11/22/16 06:20 Current Medications Generic Name Dose Route Start Last Admin Trade Name Freq PRN Reason Stop Dose Admin Acetaminophen 650 mg 11/21/16 20:47 11/22/16 05:02 Tylenol - PO 650 mg Q6H PRN Administration FEVER OR PAIN Albuterol/Ipratropium 1 amp 11/22/16 12:24 Duoneb - NEB Q6H PRN SHORTNESS OF BREATH Aspirin 81 mg 11/22/16 10:00 11/23/16 10:31 Ecotrin - PO 81 mg DAILY [facility]CO Administration Atorvastatin Calcium 10 mg 11/21/16 22:00 11/22/16 21:59 Lipitor - PO 10 mg HS [facility]CO Administration Budesonide/Formoterol Fumarate 1 puff 11/21/16 22:00 11/23/16 10:31 Symbicort 160/4.5mcg - IH 1 puff BID [facility]CO Administration Gabapentin 300 mg 11/21/16 22:00 11/23/16 10:31 Neurontin - PO 300 mg BID [facility]CO Administration Sodium Chloride 1,000 mls @ 83 mls/hr 11/21/16 21:00 11/22/16 21:58 Normal Saline - IV 83 mls/hr ASDIR [facility]CO Administration Insulin Aspart 1 vial 11/21/16 22:00 11/23/16 06:43 Novolog Vial Sliding Scale - SQ Not Given ACHS [facility] Protocol Losartan Potassium 50 mg 11/21/16 22:00 11/22/16 21:59 Cozaar - PO 50 mg HS [facility]CO Administration Magnesium Oxide 400 mg 11/22/16 20:00 11/23/16 10:31 Mag-Ox - PO 400 mg BID@0800,2000 [facility] Administration Metformin HCl 1,000 mg 11/22/16 10:00 11/23/16 06:42 Glucophage - PO 1,000 mg BIDAC [facility] Administration Metoprolol Tartrate 25 mg 11/23/16 10:00 11/23/16 10:31 Lopressor - PO 25 mg BID [facility] Administration Montelukast Sodium 10 mg 11/23/16 22:00 Singulair - PO HS [facility]CO Pantoprazole Sodium 40 mg 11/23/16 18:00 Protonix - PO DAILY@1800 [facility]CO Senna 2 tab 11/23/16 22:00 Senna - PO HS PRN CONSTIPATION Home Medications Medication Instructions Recorded Albuterol Sulfate Inhaler - 2 inh PO Q4H PRN 11/21/16 [Ventolin Hfa Inhaler -] Atorvastatin Ca [Lipitor] 10 mg PO HS 11/21/16 Budesonide/Formeterol Fumarate 1 inh PO BID 11/21/16 [SYMBICORT 160/4.5mcg -] Gabapentin 300 mg PO BID 11/21/16 Levofloxacin [Levaquin -] 500 mg PO DAILY 11/21/16 Losartan Potassium 50 mg PO HS 11/21/16 Metformin HCl [Glucophage] 1,000 mg PO BID 11/21/16 Chest X-ray: Report Reviewed, Image Reviewed (Clear with hyperinflated lung serna, no acute pathology) EKG: Report Reviewed, Image Reviewed (NSR @93bpm with questionable age indeterminate anterior wall infarct) ASSESSMENT/PLAN: Pt is a 66 yo F with a PMHx of DM2, HTN, HLD, GERD, and asthma, who presents to the ED c/o CP, SOB, dizziness, and headache in the setting of elevated BP readings at home. Pt states she has not been feeling well for over a month and has been experiencing recurring symptoms of CP, SOB, cough, and palpitations. #Acute chest pain Trops. negative x2 so far, going for stress test for am; on ASA 324mg x1 given in ED. # Palpitations most likely due to his inhalers and nebulizers since TSH is normal, since also patient stated that it happens after taking the inhaler. ECHO pending # Hx of Asthma, has not used her singulair for over a month since did not renew them. will continue # HTN Stable. vitals Q4H # Headache Tylenol 650mg Q6H prn #T2DM , SS with coverage ,HbA1c 7. # HLD on Lipitor 10mg PO HS continue DVT ppx Visit type - Emergency Visit Emergency Visit: Yes ED Registration Date: 11/21/16 Care time: The patient presented to the Emergency Department on the above date and was hospitalized for further evaluation of their emergent condition. - New Patient This patient is new to me today: No - Critical Care Critical Care patient: No
[2016-11-23 11:54] LABS: CALCIUM 8.7 mg/dL (8.5-10.1); CREATININE 0.6 mg/dL (0.55-1.02); MAGNESIUM 1.9 mg/dL (1.8-2.4)
--- NOTE | 2016-11-23 13:04 | CON.PULM ---
Consult Consult Specialty:: PULM/CCM Referred by:: TORSTEN Reason for Consultation:: SOB - History of Present Illness Chief Complaint: CP / SOB History of Present Illness: 66 F, with listed medical history. Supposed Asthma that has developed over the past few years. No childhood history. She does seem to have a history of seasonal allergies. Reports developing symptoms after cleaning her house with common household cleansers. No smoking history or second hand smoke exposure. 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 Reports nocturnal symptoms consistent with GERD. - History Source History Provided By: Patient Limitations to Obtaining History: No Limitations - Past Medical History Cardio/Vascular: Yes: HTN, Hyperlipdemia. No: CA Pulmonary: Yes: Asthma, Bronchitis Gastrointestinal: Yes: GERD ...: No Endocrine: Yes: Diabetes Mellitus - Alcohol/Substance Use Hx Alcohol Use: No History of Substance Use: reports: None - Smoking History Smoking history: Never smoked Have you smoked in the past 12 months: No - Social History ADL: Independent History of Recent Travel: No Home Medications - Allergies Allergies/Adverse Reactions: Allergies Allergy/AdvReac Type Severity Reaction Status Date / Time No Known Allergies Allergy Verified 11/21/16 13:11 - Home Medications Home Medications: Ambulatory Orders Albuterol Sulfate Inhaler - [Ventolin Hfa Inhaler -] 2 inh PO Q4H PRN 11/21/16 Atorvastatin Ca [Lipitor] 10 mg PO HS 11/21/16 Budesonide/Formeterol Fumarate [SYMBICORT 160/4.5mcg -] 1 inh PO BID 11/21/16 Gabapentin 300 mg PO BID 11/21/16 Levofloxacin [Levaquin -] 500 mg PO DAILY 11/21/16 Losartan Potassium 50 mg PO HS 11/21/16 Metformin HCl [Glucophage] 1,000 mg PO BID 11/21/16 Family Disease History - Family Disease History Family Disease History: Other: Mother (Hyperthyroidism), Brother (HTN) Other Family History: Negative for CA Review of Systems - Review of Systems Constitutional: reports: No Symptoms Eyes: reports: No Symptoms HENT: reports: No Symptoms Neck: reports: No Symptoms Cardiovascular: reports: Chest Pain, Palpitations, Shortness of Breath. denies : Edema Respiratory: reports: Orthopnea, SOB, SOB on Exertion, Wheezing. denies: Cough , Hemoptysis, Snoring Gastrointestinal: reports: No Symptoms Genitourinary: reports: No Symptoms Breasts: reports: No Symptoms Reported Musculoskeletal: reports: No Symptoms Integumentary: reports: No Symptoms Neurological: reports: No Symptoms Endocrine: reports: No Symptoms Hematology/Lymphatic: reports: No Symptoms Psychiatric: reports: No Symptoms Physical Exam Vital Sings: Vital Signs Temperature 98 F 11/23/16 10:00 Pulse Rate 91 H 11/23/16 10:00 Respiratory Rate 18 11/23/16 10:00 Blood Pressure 120/74 11/23/16 10:00 O2 Sat by Pulse Oximetry (%) 98 11/23/16 11:00 Constitutional: Yes: Well Nourished, No Distress, Anxious Eyes: Yes: Conjunctiva Clear, EOM Intact HENT: Yes: Atraumatic, Normocephalic Neck: Yes: Supple, Thyromegaly Cardiovascular: Yes: Regular Rate and Rhythm Respiratory: Yes: Regular, CTA Bilaterally. No: Accessory Muscle Use, On Nasal O2, Rales, Rhonchi, SOB, Stridor, Tachypnea, Wheezes ...Inspection: Yes: WNL ...Clubbing: No Gastrointestinal: Yes: Normal Bowel Sounds, Soft Renal/: Yes: WNL Musculoskeletal: Yes: WNL Extremities: Yes: WNL Edema: No Peripheral Pulses WNL: Yes Integumentary: Yes: WNL Neurological: Yes: Alert, Oriented ...Motor Strength: WNL Psychiatric: Yes: WNL, Alert, Oriented Labs: CBC, BMP 11/22/16 06:20 11/23/16 11:10 Imaging - Results Chest X-ray: Report Reviewed, Image Reviewed Problem List - Problems (1) Chest pain Code(s): R07.9 - CHEST PAIN, UNSPECIFIED Qualifiers: Chest pain type: unspecified Qualified Code(s): R07.9 - Chest pain, unspecified (2) GERD (gastroesophageal reflux disease) Code(s): K21.9 - GASTRO-ESOPHAGEAL REFLUX DISEASE WITHOUT ESOPHAGITIS (3) Allergic asthma Code(s): J45.909 - UNSPECIFIED ASTHMA, UNCOMPLICATED (4) HTN (hypertension) Code(s): I10 - ESSENTIAL (PRIMARY) HYPERTENSION (5) Diabetes Code(s): E11.9 - TYPE 2 DIABETES MELLITUS WITHOUT COMPLICATIONS Assessment/Plan Symbicort 2 inhalations BID O2 as needed Cardiac workup ongoing BD TX PRN Singulair Protonix BID Will need outpatient PFTs Monitor off ABX Thank you. Dr Villafuerte
[2016-11-23] MEDS ORDERED: INSULIN (NOVOLOG) ASPART 100 UNITS/ML 10ML VIAL ONE (16:47)
[2016-11-23] MEDS ORDERED: PANTOPRAZOLE 40 MG TABLET (FP) PO SCH (18:00)
[2016-11-23] MEDS: LOSARTAN POTASSIUM 50 MG TABLET (FP) PO SCH (21:39)
[2016-11-23] MEDS: ATORVASTATIN CA 10 MG TABLET (FP) PO SCH (21:40)
[2016-11-23] MEDS: PANTOPRAZOLE 40 MG TABLET (FP) PO SCH (21:40)
[2016-11-23] MEDS ORDERED: MONTELUKAST NA 10 MG TABLET PO SCH (22:00)
[2016-11-23] MEDS ORDERED: SENNOSIDES 8.6MG TABLET (FP) PO PRN (22:00)
[2016-11-24] MEDS: metFORMIN HCL 500 MG TABLET (FP) PO SCH (06:00)
[2016-11-24] MEDS: INSULIN SLIDING SCALE (NOVOLOG) 1 VIAL SQ SCH ×2 (06:00→13:37)
[2016-11-24 06:01] VITALS: PULSE 83
[2016-11-24 08:40] VITALS: BP 132/73
--- NOTE | 2016-11-24 09:44 | CONS ---
Dr. Brizuela dictating for Dr. Nieto." DATE OF CONSULTATION: 11/22/[address] Bryant for shortness of breath and chest pain. The patient is a 66-year-old female with hypertension, diabetes, "asthma", long history of PVCs, who presented to the hospital yesterday, with a multitude of complaints, including shortness of breath, generalized fatigue, elevated blood pressure, mild substernal chest pressure, and palpitations. She was admitted to telemetry. Her chest x-ray was generally unremarkable with mildly hyperexpanded lungs. Cardiac enzymes were negative x2 sets. Her D-dimer level was negative. Her BNP level was unremarkable at 139. I was called to evaluate her, this morning, for PVCs and bigeminy noted on the monitor. She denies previous cardiac history, but does endorse a long history of PVCs. She is no longer short of breath and her chest discomfort has resolved. She does not exercise because she suffers from significant lower extremity neuropathy in her feet from her diabetes. Her activity level is relegated to house work which generally causes mild fatigue, but no chest pain. She denies syncope, PND, but does have some orthopnea-type symptoms. She denies lower extremity edema. She denies being hospitalized previously for congestive heart failure. PAST MEDICAL HISTORY: Significant for diabetes, hypertension, peripheral neuropathy, hyperlipidemia, and allergy-triggered asthma. ALLERGIES: She has no medication allergies. HOME MEDICATIONS: Include Ventolin p.r.n., Levaquin which she had been taking over the last week to 2 weeks prescribed for an upper respiratory infection, Neurontin 300 b.i.d., budesonide 1 inhalation b.i.d., losartan 50 mg nightly, metformin 1000 mg b.i.d., and Lipitor 10 mg nightly. SURGICAL HISTORY: No major recent surgeries. FAMILY HISTORY: No early CAD or sudden cardiac . SOCIAL HISTORY: Nonsmoker. . Works as a nurse's aide. Denies alcohol or illicit drugs. PHYSICAL EXAMINATION: Vital signs: Afebrile, temperature 97.9; pulse 88, regular; blood pressure 105/74; oxygen 99 on room air. Eyes: She is anicteric. Neck: She has no carotid bruits. Carotid pulses 2+. Heart: Regular with no murmurs, rubs, or gallops. Chest: Clear with no active wheezing, no rales. Abdomen: Generally soft, nontender. No rebound or guarding. Extremities: Warm with no pitting edema. Her EKG showed normal sinus rhythm at 93 beats per minute. Telemetry shows normal sinus rhythm with frequent VPCs occasionally in a pattern of bigeminy. LABORATORIES: White count 8.5, hematocrit 33, platelets 178. INR 0.99, D-dimer less than 200. Sodium 139, potassium 4, creatinine 0.6, magnesium 1.9, LFTs normal. TSH was normal. Chest x-ray showed hyperinflated lungs, otherwise normal. ASSESSMENT: 1. Dyspnea on exertion. 2. Atypical chest pain. 3. Ventricular premature contractions. 4. Diabetes. PLAN: 1. Dyspnea on exertion/atypical chest pain: Obtain third cardiac enzyme this morning. Aspirin 81 mg daily. Echo and nuclear stress test on Thursday. 2. VPCs: Replete magnesium. Begin metoprolol of 25 mg daily. Continue telemetry. Further recommendations pending above. Briseida [id number]
--- NOTE | 2016-11-24 12:20 | PN ---
Progress Note, Physician - Current Medication List Current Medications: Active Medications Acetaminophen (Tylenol -) 650 mg PO Q6H PRN PRN Reason: FEVER OR PAIN Last Admin: 11/22/16 05:02 Dose: 650 mg Albuterol/Ipratropium (Duoneb -) 1 amp NEB Q6H PRN PRN Reason: SHORTNESS OF BREATH Aspirin (Ecotrin -) 81 mg PO DAILY ON LICENSE OF [facility] Last Admin: 11/23/16 10:31 Dose: 81 mg Atorvastatin Calcium (Lipitor -) 10 mg PO HS ON LICENSE OF [facility] Last Admin: 11/23/16 21:40 Dose: 10 mg Budesonide/Formoterol Fumarate (Symbicort 160/4.5mcg -) 2 puff IH BID ON LICENSE OF [facility] Last Admin: 11/23/16 21:36 Dose: 2 puff Gabapentin (Neurontin -) 300 mg PO BID ON LICENSE OF [facility] Last Admin: 11/23/16 21:39 Dose: 300 mg Insulin Aspart (Novolog Vial Sliding Scale -) 1 vial SQ ACHS ON LICENSE OF [facility] PRN Reason: Protocol Last Admin: 11/24/16 06:00 Dose: Not Given Losartan Potassium (Cozaar -) 50 mg PO HS ON LICENSE OF [facility] Last Admin: 11/23/16 21:39 Dose: 50 mg Magnesium Oxide (Mag-Ox -) 400 mg PO BID@0800,2000 ON LICENSE OF [facility] Last Admin: 11/23/16 21:40 Dose: 400 mg Metformin HCl (Glucophage -) 1,000 mg PO BIDAC ON LICENSE OF [facility] Last Admin: 11/24/16 06:00 Dose: Not Given Metoprolol Tartrate (Lopressor -) 25 mg PO BID ON LICENSE OF [facility] Last Admin: 11/23/16 21:39 Dose: 25 mg Montelukast Sodium (Singulair -) 10 mg PO HS ON LICENSE OF [facility] Last Admin: 11/23/16 21:40 Dose: 10 mg Pantoprazole Sodium (Protonix -) 40 mg PO BID ON LICENSE OF [facility] Last Admin: 11/23/16 21:40 Dose: 40 mg Senna (Senna -) 2 tab PO HS PRN PRN Reason: CONSTIPATION - Objective Vital Signs: Vital Signs Temperature 98.0 F 11/24/16 06:00 Pulse Rate 83 11/24/16 06:00 Respiratory Rate 18 11/24/16 06:00 Blood Pressure 132/73 11/24/16 08:39 O2 Sat by Pulse Oximetry (%) 97 11/24/16 02:00 Eyes: Yes: WNL, Conjunctiva Clear, EOM Intact HENT: Yes: WNL, Atraumatic, Normocephalic Neck: Yes: WNL, Supple, Trachea Midline Cardiovascular: Yes: WNL, Regular Rate and Rhythm Respiratory: Yes: WNL, Regular, CTA Bilaterally Gastrointestinal: Yes: WNL, Normal Bowel Sounds Genitourinary: Yes: WNL Musculoskeletal: Yes: WNL Extremities: Yes: WNL Edema: No Integumentary: Yes: WNL Neurological: Yes: WNL, Alert, Oriented ...Motor Strength: WNL Psychiatric: Yes: WNL Labs: CBC, BMP 11/22/16 06:20 11/23/16 11:10 INR, PTT INR 0.99 (0.82-1.09) 11/22/16 06:20 Assessment/Plan 1. M[place]A: -Plan for echo in AM for EF assessment and check RVSP -For stress MIBI -Resume Singulair -Pulm Eval for optimization of asthma regimen although lungs sound clear at moment. Needs PFTs if not done recently -No evidence volume overload 2. Atypical CP: -3 enzymes negative with no acute ECG changes -ASA -Echo and stress MPI in AM 3. VPCs: -Repleting Mg2+ -Increase metoprolol BID (she tolerated yesterday's dose well with no wheezing)
[2016-11-24] MEDS: MAGNESIUM OXIDE 400 MG TABLET (FP) PO SCH (13:36)
[2016-11-24] MEDS: ASPIRIN COATED 81 MG TABLET.EC PO SCH (13:36)
[2016-11-24] MEDS: METOPROLOL TARTRATE 25 MG TABLET (FP) PO SCH (13:36)
[2016-11-24] MEDS: BUDESONIDE/FORMETEROL FUMARATE 160/4.5 mcg INHALER IH SCH (13:37)
[2016-11-24] MEDS: GABAPENTIN 300 MG CAPSULE (FP) PO SCH (13:37)
[2016-11-24] MEDS: PANTOPRAZOLE 40 MG TABLET (FP) PO SCH (13:37)
[2016-11-24 14:44] VITALS: TEMP 98.2
--- NOTE | 2016-11-24 15:24 | PN ---
Teaching Attending Note Name of Resident: Ping Levi ATTENDING PHYSICIAN STATEMENT I saw and evaluated the patient. I reviewed the resident's note and discussed the case with the resident. I agree with the resident's findings and plan as documented. Patient is comfortable, with no acute distress, no shortness of breath. Vital Signs Temperature 98.2 F 11/24/16 14:43 Pulse Rate 83 11/24/16 06:00 Respiratory Rate 18 11/24/16 06:00 Blood Pressure 132/73 11/24/16 08:39 O2 Sat by Pulse Oximetry (%) 97 11/24/16 11:00 CBCD WBC 8.5 K/mm3 (4.0-10.0) 11/22/16 06:20 RBC 3.82 M/mm3 (3.60-5.2) 11/22/16 06:20 Hgb 11.2 GM/dL (10.7-15.3) 11/22/16 06:20 Hct 33.4 % (32.4-45.2) 11/22/16 06:20 MCV 87.4 fl (80-96) 11/22/16 06:20 MCHC 33.4 g/dl (32.0-36.0) 11/22/16 06:20 RDW 13.6 % (11.6-15.6) 11/22/16 06:20 Plt Count 178 K/MM3 (134-434) 11/22/16 06:20 MPV 8.7 fl (7.5-11.1) 11/22/16 06:20 CMP Sodium 137 mmol/L (136-145) 11/23/16 11:10 Potassium 3.7 mmol/L (3.5-5.1) 11/23/16 11:10 Chloride 97 mmol/L (98-107) L 11/23/16 11:10 Carbon Dioxide 29 mmol/L (21-32) 11/23/16 11:10 Anion Gap 11 (8-16) 11/23/16 11:10 BUN 14 mg/dL (7-18) D 11/23/16 11:10 Creatinine 0.6 mg/dL (0.55-1.02) 11/23/16 11:10 Creat Clearance w eGFR > 60 (>60) 11/22/16 06:20 Random Glucose 132 mg/dL (74-106) H 11/23/16 11:10 Calcium 8.7 mg/dL (8.5-10.1) 11/23/16 11:10 Total Bilirubin 0.2 mg/dL (0.2-1.0) D 11/22/16 06:20 AST 13 U/L (15-37) L D 11/22/16 06:20 ALT 25 U/L (12-78) D 11/22/16 06:20 Alkaline Phosphatase 44 U/L (45-117) L 11/22/16 06:20 Total Protein 6.1 g/dl (6.4-8.2) L D 11/22/16 06:20 Albumin 2.9 g/dl (3.4-5.0) L 11/22/16 06:20 CARDIAC ENZYMES Creatine Kinase 59 IU/L (26-192) 11/22/16 06:20 Troponin I < 0.02 ng/ml (0.00-0.05) 11/22/16 06:20 Current Medications Generic Name Dose Route Start Last Admin Trade Name Freq PRN Reason Stop Dose Admin Acetaminophen 650 mg 11/21/16 20:47 11/22/16 05:02 Tylenol - PO 650 mg Q6H PRN Administration FEVER OR PAIN Albuterol/Ipratropium 1 amp 11/22/16 12:24 Duoneb - NEB Q6H PRN SHORTNESS OF BREATH Aspirin 81 mg 11/22/16 10:00 11/24/16 13:36 Ecotrin - PO 81 mg DAILY [facility]CO Administration Atorvastatin Calcium 10 mg 11/21/16 22:00 11/23/16 21:40 Lipitor - PO 10 mg HS [facility]CO Administration Budesonide/Formoterol Fumarate 2 puff 11/23/16 22:00 11/24/16 13:37 Symbicort 160/4.5mcg - IH 2 puff BID [facility]CO Administration Gabapentin 300 mg 11/21/16 22:00 11/24/16 13:37 Neurontin - PO 300 mg BID [facility]CO Administration Insulin Aspart 1 vial 11/21/16 22:00 11/24/16 13:37 Novolog Vial Sliding Scale - SQ Not Given ACHS [facility] Protocol Losartan Potassium 50 mg 11/21/16 22:00 11/23/16 21:39 Cozaar - PO 50 mg HS FR[facility]CO Administration Magnesium Oxide 400 mg 11/22/16 20:00 11/24/16 13:36 Mag-Ox - PO 400 mg BID@0800,2000 FR[facility]CO Administration Metformin HCl 1,000 mg 11/22/16 10:00 11/24/16 06:00 Glucophage - PO Not Given BIDAC [facility]CO Metoprolol Tartrate 25 mg 11/23/16 10:00 11/24/16 13:36 Lopressor - PO 25 mg BID [facility]CO Administration Montelukast Sodium 10 mg 11/23/16 22:00 11/23/16 21:40 Singulair - PO 10 mg HS [facility]CO Administration Pantoprazole Sodium 40 mg 11/23/16 22:00 11/24/16 13:37 Protonix - PO 40 mg BID [facility] Administration Senna 2 tab 11/23/16 22:00 Senna - PO HS PRN CONSTIPATION Chest X-ray: Report Reviewed, Image Reviewed (Clear with hyperinflated lung serna, no acute pathology) EKG: Report Reviewed, Image Reviewed (NSR @93bpm with questionable age indeterminate anterior wall infarct) ASSESSMENT AND PLAN: Pt is a 66 yo F with a PMHx of DM2, HTN, HLD, GERD, and asthma, who presents to the ED c/o CP, SOB, dizziness, and headache in the setting of elevated BP readings at home. Pt states she has not been feeling well for over a month and has been experiencing recurring symptoms of CP, SOB, cough, and palpitations. #Acute chest pain ,[place] is ruled out by neg.x 2 troponins and Stress test is negative. on ASA 324mg continue and possible GERD give protonix x 1 months # Palpitations most likely due to his inhalers and nebulizers since TSH is normal. # Hx of Asthma, On singulair now continue , Patient does better on advair will RX for advair 100mcg/50 # HTN Stable continue home meds. # Headache Tylenol 650mg Q6H prn #T2DM , continue metformin # HLD on Lipitor 10mg PO HS continue Patient can be discharged home on singulair, protonix x 2 weeks
--- NOTE | 2016-11-24 15:31 | DS ---
[id number]. no acute events on telemetry. Has no chest pain, no sob, no cough, no dizziness. reports feeling anxious before stress test. OBJECTIVE: Vital Signs Period Temp Pulse Resp BP Sys/Edwards Pulse Ox Last 24 Hr 97.9 F-99.0 F 83-91 18-20 99-136/42-75 97-98 PHYSICAL EXAM GENERAL: The patient is awake, alert, and fully oriented, in no acute distress. HEAD: Normal with no signs of trauma. EYES: PERRL, extraocular movements intact, sclera anicteric, conjunctiva clear. ENT: moist mucous membranes. NECK: supple. LUNGS: Breath sounds equal, clear to auscultation bilaterally HEART: Regular rate and rhythm, S1, S2 ABDOMEN: Soft, nontender, nondistended, normoactive bowel sounds EXTREMITIES: 2+ pulses, warm, well-perfused, no edema. NEUROLOGICAL: Cranial nerves II through XII grossly intact. Normal speech, gait not observed. PSYCH: slightly anxious mood, normal affect. SKIN: Warm, dry LABS Laboratory Results - last 24 hr 11/23/16 11/23/16 11/24/16 16:55 21:05 05:42 POC Glucometer 147 104 107 11/24/16 11/24/16 08:33 13:32 POC Glucometer 120 135 HOSPITAL COURSE: Date of Admission:11/21/16 Pt is a 66 yo F with a PMHx of DM2, HTN, HLD, GERD, and asthma, who presents to the ED c/o CP, SOB, dizziness, and headache in the setting of elevated BP readings at home. Pt states she has not been feeling well for over a month and has been experiencing recurring symptoms of CP, SOB, cough, and palpitations. She admits to having asthma that she developed a few yrs ago as well as seasonal allergies. She has been using her nebulizer more often this spring. She recently finished a course of Levofloxacin that was given to her by PCP for bronchitis. She reports feeling anxious, like she will and recording her BP as high as 181/150mmHg. She was admitted due to atypical chest pain and asthma exacerbation. She was evaluated by cardiology and pulmonology. She whas treated with advair, duoneb and symbicort. she was also goven protonix that relieved her chest pain (40 mg BID). She had no events on telemetry, her initial tachycardia resolved (likley due to albuterol use) and she had a negative stress test and unremarkable TTE. her Metoprolol was increased to 25 BID, she was prescribed baby aspirin as well. She as discharged home asymptomatic. She will need pulmonary function tests outpatient. Date of Discharge: 11/24/16 Minutes to complete discharge: 46 (na) <Ping Levi - Last Filed: 11/24/16 15:32> Physical Exam: SUBJECTIVE: Patient seen and examined OBJECTIVE: Vital Signs Period Temp Pulse Resp BP Sys/Edwards Pulse Ox Last 24 Hr 97.9 F-99.0 F 83-91 18-20 99-136/59-75 97-98 PHYSICAL EXAM GENERAL: The patient is awake, alert, and fully oriented, in no acute distress. HEAD: Normal with no signs of trauma. EYES: PERRL, extraocular movements intact, sclera anicteric, conjunctiva clear. ENT: Ears normal, nares patent, oropharynx clear without exudates, moist mucous membranes. NECK: Trachea midline, full range of motion, supple. LUNGS: Breath sounds equal, clear to auscultation bilaterally, no wheezes, no crackles, no accessory muscle use. HEART: Regular rate and rhythm, S1, S2 without murmur, rub or gallop. ABDOMEN: Soft, nontender, nondistended, normoactive bowel sounds, no guarding, no rebound, no hepatosplenomegaly, no masses. EXTREMITIES: 2+ pulses, warm, well-perfused, no edema. NEUROLOGICAL: Cranial nerves II through XII grossly intact. Normal speech, gait not observed. PSYCH: Normal mood, normal affect. SKIN: Warm, dry, normal turgor, no rashes or lesions noted. LABS Laboratory Results - last 24 hr 11/23/16 11/23/16 11/24/16 16:55 21:05 05:42 POC Glucometer 147 104 107 11/24/16 11/24/16 08:33 13:32 POC Glucometer 120 135 HOSPITAL COURSE: Date of Admission:11/21/16 Date of Discharge: 11/24/16 Correction: was treated with symbicort since Advair is not our hospital formulary, therefore is being discharged with Advair since she does better on Advair vs Symbicort. <Michelle Rodriguez - Last Filed: 11/24/16 16:03> Discharge Summary Reason For Visit: CHEST PAIN Current Active Problems Allergic asthma (Acute) Chest pain (Acute) Diabetes (Acute) GERD (gastroesophageal reflux disease) (Acute) HTN (hypertension) (Acute) - Home Medications Comprehensive Discharge Medication List: Ambulatory Orders Albuterol Sulfate Inhaler - [Ventolin HFA Inhaler -] 2 inh PO Q4H PRN 11/21/16 Atorvastatin Ca [Lipitor] 10 mg PO HS 11/21/16 Budesonide/Formeterol Fumarate [SYMBICORT 160/4.5mcg -] 1 inh PO BID 11/21/16 Gabapentin 300 mg PO BID 11/21/16 Losartan Potassium 50 mg PO HS 11/21/16 Metformin HCl [Glucophage] 1,000 mg PO BID 11/21/16 Albuterol 2.5/Ipratropium 0.5 [Duoneb -] 1 amp NEB Q6H PRN #6 amp 11/24/16 Aspirin Coated [Ecotrin -] 81 mg PO DAILY #30 tab 11/24/16 Metoprolol Tartrate [Lopressor -] 25 mg PO BID #60 tablet 11/24/16 Montelukast Na [Singulair -] 10 mg PO HS #30 tablet 11/24/16 Pantoprazole Sodium [Protonix -] 40 mg PO BID #60 tab 11/24/16 <Ping Levi - Last Filed: 11/24/16 15:32> Current Active Problems Allergic asthma (Acute) Chest pain (Acute) Diabetes (Acute) GERD (gastroesophageal reflux disease) (Acute) HTN (hypertension) (Acute) - Home Medications Comprehensive Discharge Medication List: Ambulatory Orders Albuterol Sulfate Inhaler - [Ventolin HFA Inhaler -] 2 inh PO Q4H PRN 11/21/16 Atorvastatin Ca [Lipitor] 10 mg PO HS 11/21/16 Budesonide/Formeterol Fumarate [SYMBICORT 160/4.5mcg -] 1 inh PO BID 11/21/16 Gabapentin 300 mg PO BID 11/21/16 Losartan Potassium 50 mg PO HS 11/21/16 Metformin HCl [Glucophage] 1,000 mg PO BID 11/21/16 Albuterol 2.5/Ipratropium 0.5 [Duoneb -] 1 amp NEB Q6H PRN #6 amp 11/24/16 Aspirin Coated [Ecotrin -] 81 mg PO DAILY #30 tab 11/24/16 Metoprolol Tartrate [Lopressor -] 25 mg PO BID #60 tablet 11/24/16 Pantoprazole Sodium [Protonix -] 40 mg PO BID #60 tab 11/24/16 Salmeterol/Fluticasone [Advair 250Mcg/50Mcg -] 1 inh IH BID #6 inh 11/24/16 <Michelle Rodriguez - Last Filed: 11/24/16 16:03> Condition: Good - Instructions Diet, Activity, Other Instructions: You were in the hospital because of chest apin and shortness of breath with fast heart rate. You were seen by a lung doctor and a heart doctor. your shortness of breath is due to asthma exacerbation by seasonal allergy and fast heart rate is probably a side effect of asthma medication. Please take advair, duoneb and symbicort. Try not to use albuterol too much. You will need to f/u with Dr Villafuerte and check your lung function. For your heart take aspirin 81 mg every day and metoprolol 25 mg twice a day. Please follow up with Dr Brizuela. Your chest pain is probably due to heart burn/acid reflux. please take daily protonix twice a day Referrals: Ish Mcrae MD [Primary Care Provider] - 1 Week Cipriano Brizuela MD [Staff Physician] - 1 Week Milton Villafuerte MD [Staff Physician] - 1 Week Disposition: HOME This patient is new to me today: Yes Date on this admission: 11/24/16 Emergency Visit: Yes ED Registration Date: 11/21/16 Care time: The patient presented to the Emergency Department on the above date and was hospitalized for further evaluation of their emergent condition. Critical Care patient: No - Discharge Referral Referred to [facility] Med [facility] No <Ping Levi - Last Filed: 11/24/16 15:32>
--- NOTE | 2016-11-25 22:40 | EKG ---
Test Reason : Blood Pressure : / mmHG Vent. Rate : 081 BPM Atrial Rate : 081 BPM P-R Int : 174 ms QRS Dur : 086 ms QT Int : 378 ms P-R-T Axes : 063 031 058 degrees QTc Int : 439 ms SINUS RHYTHM WITH OCCASIONAL PREMATURE VENTRICULAR COMPLEXES OTHERWISE NORMAL ECG WHEN COMPARED WITH ECG OF 21-NOV-2016 13:39, PREMATURE VENTRICULAR COMPLEXES ARE NOW PRESENT Confirmed by KRISH WILLIS, LISA ([id number]) on 11/25/2016 10:40:08 PM Referred By: Carla SUAREZ Confirmed By:LISA RUTHERFORD MD
== END 2016-11-24 17:22 | disposition home or self-care (01) ==
LOC: JER 12:51 → JERBED 19:57 → J4S 23:39
PROVIDERS: ADMIT Internal Medicine; ATTEND Internal Medicine
PROC: 3E033GC Introduction of Other Therapeutic Substance into Peripheral Vein, Percutaneous Approach (ICD-10-PCS; principal; 2016-11-21)
PROC: 3E0337Z Introduction of Electrolytic and Water Balance Substance into Peripheral Vein, Percutaneous Approach (ICD-10-PCS; 2016-11-21)
PROC: 3E013VG Introduction of Insulin into Subcutaneous Tissue, Percutaneous Approach (ICD-10-PCS; 2016-11-21)
DX: R07.89 Other chest pain (principal); R00.2 Palpitations; I10 Essential (primary) hypertension; Z91.14 Patient's other noncompliance with medication regimen; E11.9 Type 2 diabetes mellitus without complications; J45.909 Unspecified asthma, uncomplicated; K21.9 Gastro-esophageal reflux disease without esophagitis; N81.4 Uterovaginal prolapse, unspecified; E78.5 Hyperlipidemia, unspecified; Z79.899 Other long term (current) drug therapy
CPT/HCPCS: 36415; 71020-TC; 78452-TC; 80048; 80053; 80061; 82550; 83036; 83721; 83735; 83880; 84100; 84443; 84484; 85025; 85379; 85610; 85730; 93005; 93010; 93017; 93306-TC; 99285-25; A9502; G0378